=== PATIENT | male | born 1950 | race Caucasian/White ===

== ENCOUNTER → 2018-01-31 06:12 | Outpatient (CLI) | payer MEDICARE, OTHER, SELFPAY ==
[2018-01-24 15:31] VITALS: BMI 25.5
--- NOTE | 2018-01-31 14:32 | STRESSREP_ITS ---
Stress Test Report Date: 01/31/2018 Procedure: Exercise tolerance test/imaging study Indications: CAD; status post PCI Consent: Per the patient Procedure: The patient exercised on a Torres protocol for 8 minutes completing Stage II and 2 minutes of Stage III achieving a peak heart rate of 162 bpm (104 % predicted maximal heart rate) with a peak blood pressure 230/84 mmHg and a peak MET capacity of 9 METs. The baseline ECG demonstrated sinus bradycardia. The peak exercise ECG demonstrated no obvious ECG changes. There were occasional PVCs during exercise. The functional capacity was considered good. There was no complaint of chest discomfort during exercise or recovery. The examination was discontinued secondary to dyspnea. Impression: 1. Technically adequate (percent predicted maximal heart rate greater than 85%) exercise tolerance test 2. Peak exercise ECG no obvious ECG changes 3. Were occasional PVCs during exercise 4. Nuclear images pending Myocardial perfusion imaging study: Technique: The patient was injected with 10.9 mCi of technetium 99m Cardiolite and subsequently rest SPECT Cardiolite nuclear imaging was obtained in the horizontal long, vertical long, and short axis views. The patient exercised on a Torres protocol for 8 minutes completing Stage II and 2 minutes of Stage III achieving a peak heart rate of 162 bpm (104 % predicted maximal heart rate) with a peak blood pressure 230/84 mmHg and a peak MET capacity of 9 METs. The patient was injected with 31.4 mCi of technetium 99m Cardiolite and subsequently stress SPECT Cardiolite nuclear imaging was obtained in the horizontal long, vertical long, and short axis views. A gated Cardiolite study at peak stress was obtained. Interpretation: Rest and stress SPECT Cardiolite nuclear imaging status post realignment, normalization, and attenuation correction, demonstrates the appearance of relative uniform tracer uptake and myocardial perfusion appearing within normal limits. There is end systolic thickening and brightening. The gated Cardiolite study demonstrates myocardial thickening and inward wall motion. The reported LVEF is 77 %. Impression: 1. Rest and stress SPECT Cardiolite nuclear imaging demonstrate relative uniform tracer uptake and myocardial perfusion appearing within normal limits. 2. The gated Cardiolite study reports an LVEF of 77 %. This note was generated with [employer] software. It may contain incorrect words, spelling, and punctuation that were not noted in checking the note before signing.
== END ==
PROVIDERS: Family Provider Family Medicine; PCP Family Medicine; Referring Provider Physician Assistant Medical; Visit Provider Physician Assistant Medical
DX: I25.10 Atherosclerotic heart disease of native coronary artery without angina pectoris (principal); E78.5 Hyperlipidemia, unspecified
CPT/HCPCS: 78452; 93017; A9500; A4216

== ENCOUNTER → 2020-03-18 09:09 | Outpatient (CLI) | payer MEDICARE, OTHER, SELFPAY ==
[2020-03-17 10:07] VITALS: BMI 28.8
[2020-03-18 10:27] LABS: AST(SGOT) 26 U/L (15-37); Alanine Aminotransfer ALT/SGPT 33 U/L (16-61); Albumin, Serum 3.9 g/dL (3.2-5.0); Alkaline Phosphatase 165 U/L (45-117); Bilirubin, Direct 0.19 mg/dL (0.00-0.30); Cholesterol 137 mg/dL (200); Globulin 3.3 g/dL (2.2-4.2); High Density Lipoprotein 47 mg/dL; Protein, Total 7.2 g/dL (6.4-8.2); Triglycerides 157 mg/dL; Very Low Density Lipoprotein 31 mg/dL (5-40)
== END ==
PROVIDERS: PCP Family Medicine; Referring Provider Internal Medicine Cardiovascular Disease; Visit Provider Internal Medicine Cardiovascular Disease
DX: I25.10 Atherosclerotic heart disease of native coronary artery without angina pectoris (principal); E78.00 Pure hypercholesterolemia, unspecified; Z95.5 Presence of coronary angioplasty implant and graft
CPT/HCPCS: 36415; 80061; 80076

== ENCOUNTER 2020-06-25 20:03 | Emergency (ER) | payer MEDICARE, OTHER, SELFPAY ==
[2020-03-17 10:07] VITALS: BMI 28.8
[2020-06-25 20:03] VITALS: BP 163/90; PULSE 73; RESP 18; TEMP 36.1; O2SAT 95; BMI 25.0
--- NOTE | 2020-06-25 20:28 | EDS_ITS ---
HPI History of Present Illness Chief Complaint: Flank Pain [facility] Medical History (Updated 06/25/20 @ 23:[address] Fan Menchaca MD) Atherosclerosis of coronary artery of [place] heart without angina pectoris History of left heart catheterization (LHC) (~09/19/09) Hyperlipidemia Hypogammaglobulinemia Pericarditis Presence of stent in coronary artery (~08/2009) Pure hypercholesterolemia Home Medications aspirin 81 mg PO DAILY@0800 10/18/16 [History Last Taken 06/25/20 08:00] atorvastatin 40 mg PO QHS 10/18/16 [History Last Taken Unknown] multivitamin 1 tab PO DAILY 03/22/19 [History Last Taken Unknown] coenzyme [id number] [CoQ10 SG 100] cap PO 06/25/20 [History Last Taken Unknown] Allergy/AdvReac Type Severity Reaction Status Date / Time No Known Allergies Allergy Verified 06/25/20 20:05 Family History Mother Hypertension Brother Diabetes Hypertension Surgical History History of appendectomy History of right hemicolectomy (10/25/16) History of testicular lump History of tonsillectomy Presence of coronary angioplasty implant and graft (~08/2009) Social History (Updated 03/17/20 @ 10:[address] Asher Napoles MD) Smoking Status: Never smoker alcohol intake: never caffeine: Yes Type: tea Number of servings: 3 EXAM Physical Exam Const Vital Signs: 06/25/20 20:03 06/25/20 20:19 Temperature 97 F L Temperature Source Temporal Pulse Rate 73 Respiratory Rate 18 Respiratory Pattern Normal Blood Pressure 163/90 H Blood Pressure Mean 114 Pulse Ox 95 Oxygen Delivery Method Room Air MDM MDM MDM Narrative Medical decision making narrative: Patient presents with abrupt onset of right flank pain radiating to his groin. He denies testicular pain. Patient's history physical exam is consistent with obstructing ureteral stone. Urinalysis remarkable for 1+ bacteria. There is also blood and protein noted on the macro. Macro was negative for leukoesterase and nitrites. There was no pyuria. Since patient is immune suppressed urine culture was ordered and he received 2 g of Rocephin IV piggyback. Plan is to discharge once the Rocephin has infused. Lab Data Labs: Laboratory Results - last 24 hr 06/25/20 06/25/20 06/25/20 20:40 20:40 22:45 WBC 13.2 H RBC 4.88 Hgb 14.6 Hct 42.4 MCV 86.9 MCH 29.9 MCHC 34.4 RDW Std Deviation 40.1 RDW Coeff of Jovan 12.6 Plt Count 251 MPV 9.2 Immature Gran % (Auto) 0.300 Neut % (Auto) 77.3 H Lymph % (Auto) 14.5 L [place] % (Auto) 7.4 Eos % (Auto) 0.0 Baso % (Auto) 0.5 Absolute Neuts (auto) 10.2 H Absolute Lymphs (auto) 1.91 Nucleated RBC % 0 Sodium 139 Potassium 3.7 Chloride 107 Carbon Dioxide 25.0 Anion Gap 7 BUN 20 H Creatinine 1.06 Estim Creat Clear Calc 64.53 Est GFR (MDRD) Af Amer 89 Est GFR (MDRD) Non-Af 74 BUN/Creatinine Ratio 18.9 Glucose 133 H Calcium 8.9 Urine Color Yellow Urine Clarity Clear Urine pH 6.0 Ur Specific [place] 1.015 Urine Protein 15 H Urine Glucose (UA) Normal Urine Ketones Negative Urine Occult Blood 250 H Urine Nitrite Negative Urine Bilirubin Negative Urine Urobilinogen Normal Ur Leukocyte Esterase Negative Urine RBC 0-5 SEEN Urine WBC 0 SEEN Ur Squamous Epith Cells 0 SEEN Urine Bacteria 1+ Urine Mucus 1+ Radiography Diagnostic Testing: Radiology Impression Abdomen/Pelvis CT 06/25/20 20:56 IMPRESSION: Right renal and ureterovesical junction stones with hydronephrosis. Gallstone. No biliary dilatation. Right lower lung interstitial infiltrate. Electronically Signed: Natanael Gillette MD at 21:39 EDT , Service support , Discharge Plan Triage Chief Complaint: Flank Pain ED Provider: Fan Menchaca Dx/Rx/DC Orders Clinical Impression: Flank pain with history of urolithiasis, Bacteriuria, Suppression of immune system subtherapeutic Instructions: ED Kidney Stone, Passed Prescriptions: No Action multivitamin Tablet 1 tab PO DAILY RF: 0 atorvastatin 40 MG tablet 40 mg PO QHS RF: 0 aspirin 81 MG tablet 81 mg PO DAILY@0800 RF: 0 CoQ10 SG 100 100-100 mg-unit Capsule PO RF: 0 Primary Care Provider: Asher Castrejon Referrals: Asher Castrejon DO [Primary Care Provider] - 3-5 Days if not improving Disposition Disposition: Home, self care
[2020-06-25] MEDS: Morphine 4 MG/ML Syringe IV (20:46)
[2020-06-25] MEDS: Ketorolac 15 MG/ML Vial IV (20:46)
[2020-06-25] MEDS: Ondansetron 4 MG/2 ML Vial IV (20:47)
[2020-06-25] MEDS: 0.9% Normal Saline 1,000 ML 250 ML IV (20:48)
[2020-06-25 20:49] LABS: Absolute Lymphocyte Count 1.91 X10^3/uL (0.83-4.51); Absolute Neutrophil Count 10.2 X10^3/uL (2.0-7.7); Basophil# 0.07 X10^3/uL; Basophil% 0.5 % (0-1); Hematocrit 42.4 % (40-54); Hemoglobin 14.6 g/dL (13.0-16.5); Lymphocyte # 1.91 X10^3/ul (0.83-4.51); Lymphocyte % 14.5 % (19-41); Mean Corp Hgb Conc 34.4 g/dL (32-36); Mean Corpuscular Hgb 29.9 pg (27.0-32.0); Mean Corpuscular Volume 86.9 fL (80-94); Mean Platelet Vol. 9.2 fl (6.2-12.0); Monocyte# 0.98 X10^3/uL; Monocyte% 7.4 % (0-10); NRBC Flagged by Analyzer 0 % (0-5); Neutrophil % 77.3 % (47-70); Platelet Count 251 K/mm3 (150-450); RBC Distribution Width CV 12.6 % (11.6-14.6); RBC Distribution Width SD 40.1 fl (35.1-43.9); Red Blood Count 4.88 M/mm3 (4.6-6.2); White Blood Count 13.2 K/mm3 (4.4-11.0)
--- NOTE | 2020-06-25 20:56 | CT_ITS ---
STUDY: CT ABDOMEN AND PELVIS WITHOUT CONTRAST REASON FOR EXAM: Male, 70 years old. Kidney Stone, right flank pain. RADIATION DOSAGE (If Supplied By Facility): CTDIvol = ( 8.67 ) mGy, DLP = ( 478.82 ) mGycm TECHNIQUE: Transaxial images were obtained from the dome of the diaphragm to the symphysis pubis without oral contrast, and without intravenous contrast. Sagittal and coronal images were reconstructed. Individualized dose optimization techniques were used for this CT. COMPARISON: None. FINDINGS: There are interstitial increased opacities in the right lower lung. The visualized portions of the heart are within normal limits. Normal liver. There is a solitary gallstone. Normal spleen. Normal pancreas. Normal bilateral adrenal glands. There is a 0.2 cm stone at the lower pole of the right kidney. There is mild right hydronephrosis with perinephric stranding. The right ureter is dilated into the pelvis. There is 3.0 cm intermediate density mass or hyperdense cyst in the mid aspect of the left kidney. Normal visualized stomach. Normal small intestine. There is postoperative change of the right colon. There are a few diverticula in the sigmoid region There is non-visualization of the appendix. There is atherosclerotic calcification of the abdominal aorta, without a demonstrated aneurysm. Normal inferior vena cava. Normal retroperitoneum. There is a 0.4 cm stone in the right side of the urinary bladder adjacent to the ureterovesical junction. There is no free fluid in the abdomen or pelvis. There is a left-sided inguinal hernia containing adipose tissue. Mild degenerative change of the spine. CT/Abdomen/Pelvis without Cont IMPRESSION: Right renal and ureterovesical junction stones with hydronephrosis. Gallstone. No biliary dilatation. Right lower lung interstitial infiltrate. Electronically Signed: Natanael Gillette MD at 21:39 EDT , Service support ,
[2020-06-25 21:03] LABS: Anion Gap 7 (5-15); BUN 20 mg/dL (7-18); BUN/Creat Ratio 18.9 RATIO (10-20); Calcium,Total 8.9 mg/dL (8.5-10.1); Chloride 107 mmol/L (98-107); Creatinine, Serum 1.06 mg/dL (0.70-1.30); EST Glomerular Filtration Rate 74 mL/min (>60); Est Glom Filt Rate - Afr Amer 89 mL/min (>60); Estimated Creatinine Clearance 64.53 ml/min; Glucose 133 mg/dL (74-106); Potassium 3.7 mmol/L (3.5-5.1); Sodium Level 139 mmol/L (136-145)
[2020-06-25 22:52] LABS: Squamous Epithelial Cells - UA 0 SEEN /hpf (0-5); White Blood Cells 0 SEEN /hpf (0-5)
[2020-06-25 22:55] LABS: Color, Urine Yellow (Yellow); Glucose, Dipstick Normal (Normal); Ketone-Dipstick Negative (Negative); Leukocyte Esterase-Dipstick Negative /ul (Negative); Nitrite-Dipstick Negative (Negative); Occult Blood-Urine 250 /ul (Negative); Protein-Dipstick 15 mg/dl (Negative); Specific Gravity, Urine 1.015 (1.002-1.030); Urine Bilirubin Dipstick Negative (Negative); Urine Clarity Clear (Clear); Urine Urobilinogen Normal (Normal)
[2020-06-25 23:02] LABS: Bacteria 1+ /hpf (None Seen); Mucous, Urine 1+ /hpf (<or=2+); Red Blood Cells-Urine 0-5 SEEN /hpf (0-5)
[2020-06-25 23:19] VITALS: BP 125/81; PULSE 61; RESP 16; O2SAT 94
[2020-06-25 23:55] VITALS: BP 119/78; PULSE 74; RESP 16; O2SAT 98
== END 2020-06-26 00:05 | disposition home or self-care (01) ==
PROVIDERS: Emergency Provider Emergency Medicine; PCP Family Medicine
DX: R10.9 Unspecified abdominal pain (principal); I25.10 Atherosclerotic heart disease of native coronary artery without angina pectoris; Z95.5 Presence of coronary angioplasty implant and graft
CPT/HCPCS: 74176; 80048; 81001; 85025; 87086; 96365; 96375; 99283; J7030; A4216; J0696; J2405

== ENCOUNTER → 2020-09-22 06:21 | Outpatient (CLI) | payer MEDICARE, OTHER, SELFPAY ==
[2020-09-22 07:37] LABS: AST(SGOT) 28 U/L (15-37); Alanine Aminotransfer ALT/SGPT 38 U/L (16-61); Albumin, Serum 3.8 g/dL (3.2-5.0); Alkaline Phosphatase 161 U/L (45-117); Bilirubin, Direct 0.19 mg/dL (0.00-0.30); Cholesterol 119 mg/dL (200); Globulin 3.5 g/dL (2.2-4.2); High Density Lipoprotein 45 mg/dL; Protein, Total 7.3 g/dL (6.4-8.2); Triglycerides 97 mg/dL; Very Low Density Lipoprotein 19 mg/dL (5-40)
== END ==
PROVIDERS: PCP Family Medicine; Referring Provider Internal Medicine Cardiovascular Disease; Visit Provider Internal Medicine Cardiovascular Disease
DX: E78.00 Pure hypercholesterolemia, unspecified (principal)
CPT/HCPCS: 36415; 80061; 80076

== ENCOUNTER 2021-01-15 03:06 | Emergency (ER) | payer MEDICARE, OTHER, SELFPAY ==
[2021-01-15 03:07] VITALS: BP 155/78; PULSE 64; RESP 16; TEMP 36.2; O2SAT 94; BMI 26.0
[2021-01-15 04:08] LABS: Bacteria 0 SEEN /hpf (None Seen); Squamous Epithelial Cells - UA 0 SEEN /hpf (0-5)
--- NOTE | 2021-01-15 04:08 | ED.VIS.BACK ---
HPI History of Present Illness Chief Complaint: Back Narrative Narrative: 70-year-old male presenting with back pain. Is in the right lower lumbar paraspinal musculature in the right. Patient states is almost near his hip. Patient states that he was bending over about a week ago and this started hurting. He noticed that intermittently throughout the week. He does periodically have some nausea with this pain. When asked if he normally gets nausea with pain he states now. He does have a history of kidney stones in the past. He states that his pain has been higher on his back with this occurs. He denies any dysuria or hematuria. He denies fever or chills. He denies diaphoresis. Patient denies any direct trauma. No loss of bladder or bowel control. No saddle anesthesia. [facility] Medical History Atherosclerosis of coronary artery of [place] heart without angina pectoris History of left heart catheterization (LHC) (~09/19/09) Hyperlipidemia Hypogammaglobulinemia Pericarditis Presence of stent in coronary artery (~08/2009) Pure hypercholesterolemia Home Medications aspirin 81 mg PO DAILY@0800 10/18/16 [History Last Taken 06/25/20 08:00] atorvastatin 40 mg PO QHS 10/18/16 [History Last Taken Unknown] multivitamin 1 tab PO DAILY 03/22/19 [History Last Taken Unknown] cyclobenzaprine 10 mg PO TID PRN #20 tablet 01/15/21 [Rx Last Taken Unknown] naproxen [Naprosyn] 500 mg PO BID #20 tab 01/15/21 [Rx Last Taken Unknown] niacin 500 mg PO DAILY 01/15/21 [History Last Taken Unknown] Allergy/AdvReac Type Severity Reaction Status Date / Time No Known Allergies Allergy Verified 01/15/21 03:07 Family History Mother Hypertension Brother Diabetes Hypertension Surgical History History of appendectomy History of right hemicolectomy (10/25/16) History of testicular lump History of tonsillectomy Presence of coronary angioplasty implant and graft (~08/2009) Social History Smoking Status: Never smoker alcohol intake: never caffeine: Yes Type: tea Number of servings: 3 ROS ROS ED Constitutional Constitutional ED: Denies chills or fever(s) Eyes Eyes: Denies blurry vision or change in vision ENT ENT ED: Denies rhinorrhea or sore throat Cardiovascular Cardiovascular: Denies chest pain or palpitations Respiratory/Chest Respiratory/Chest: Denies dyspnea Gastrointestinal Gastrointestinal: Reports nausea; Denies abdominal pain, constipation, diarrhea or vomiting Genitourinary Genitourinary ED: Denies dysuria or hematuria Musculoskeletal Musculoskeletal: Reports back pain; Denies arthralgias or myalgias Integumentary Denies Abrasions or rash Neurologic Neurologic: Denies headache(s) or paresthesias EXAM Physical Exam Const Vital Signs: 01/15/21 03:07 Temperature 97.1 F L Temperature Source Temporal Pulse Rate 64 Respiratory Rate 16 Blood Pressure 155/78 H Blood Pressure Mean 103 Pulse Ox 94 Oxygen Delivery Method Room Air Positive well nourished General Appearance ED: NAD; Negative for pallor HEENT Reports moist mucous membranes Negative for trauma Eyes PERRL and EOMs intact bilaterally Resp normal respiratory effort and clear to auscultation bilaterally Cardio regular rate and regular rhythm Back/Spine Back/Spine Narrative: Right lumbar paraspinal musculature tenderness laterally. No midline spinal deformity or step-off. No CVA tenderness. Extremity normal to inspection General Extremety ED: Negative for edema or tenderness General Extremity: Negative for edema Neuro oriented x3 Sensorium / Orientation: alert Skin General Skin Exam: Negative for jaundice or pallor MDM MDM MDM Narrative Medical decision making narrative: Patient presenting with right lower back pain. Because of his history of kidney stone I did check a urinalysis. There is some small occult blood in this. BMP is unremarkable. CT of the abdomen pelvis is performed without contrast which does not identify any kidney stones. I feel comfortable sending the patient home with Naprosyn and Flexeril. He is to follow-up with his PCP to ensure resolution. Impression: 1. Lumbar strain Lab Data Labs: Laboratory Results - last 24 hr 01/15/21 01/15/21 04:00 04:42 Sodium 138 Potassium 4.1 Chloride 106 Carbon Dioxide 28.0 Anion Gap 4 L BUN 17 Creatinine 0.77 Estim Creat Clear Calc 68.40 Est GFR (MDRD) Af Amer 129 Est GFR (MDRD) Non-Af 107 BUN/Creatinine Ratio 22.1 H Glucose 109 H Calcium 8.6 Urine Color Yellow Urine Clarity Clear Urine pH 6.0 Ur Specific [place] 1.020 Urine Protein Negative Urine Glucose (UA) Normal Urine Ketones Negative Urine Occult Blood 25 H Urine Nitrite Negative Urine Bilirubin Negative Urine Urobilinogen Normal Ur Leukocyte Esterase 25 H Urine RBC 0-5 SEEN Urine WBC 10-25 SEEN Ur Squamous Epith Cells 0 SEEN Urine Bacteria 0 SEEN Urine Mucus 2+ Radiography Diagnostic Testing: Clinical Impression(s) from Imaging Studies Abdomen/Pelvis CT 01/15/21 04:33 IMPRESSION: Mild to moderate constipation. No status post appendectomy. Benign-appearing left renal cyst. No evidence of hydronephrosis. Fatty left inguinal hernia. Minimal right lower pleural thickening stable since prior study. Electronically Signed: Eri Diaz MD at 5:13 EST Tel , Service support , Discharge Plan Triage Chief Complaint: Back ED Provider: Jose Gavin Dx/Rx/DC Orders Instructions: ED Back Spasm, No Trauma Prescriptions: New naproxen [Naprosyn] 500 mg tablet 500 mg PO BID Qty: 20 RF: 0 cyclobenzaprine 10 mg tablet 10 mg PO TID PRN (Reason: Muscle Spasm) Qty: 20 RF: 0 No Action multivitamin Tablet 1 tab PO DAILY RF: 0 atorvastatin 40 MG tablet 40 mg PO QHS RF: 0 aspirin 81 MG tablet 81 mg PO DAILY@0800 RF: 0 niacin 500 mg Tablet 500 mg PO DAILY RF: 0 Primary Care Provider: Asher Castrejon Referrals: Asher Castrejon DO [Primary Care Provider] - Disposition Disposition: Home, Self Care
[2021-01-15 04:14] LABS: Color, Urine Yellow (Yellow); Glucose, Dipstick Normal (Normal); Ketone-Dipstick Negative (Negative); Leukocyte Esterase-Dipstick 25 /ul (Negative); Nitrite-Dipstick Negative (Negative); Occult Blood-Urine 25 /ul (Negative); Protein-Dipstick Negative (Negative); Urine Bilirubin Dipstick Negative (Negative); Urine Clarity Clear (Clear); Urine Urobilinogen Normal (Normal)
[2021-01-15 04:23] LABS: Red Blood Cells-Urine 0-5 SEEN /hpf (0-5); White Blood Cells 10-25 SEEN /hpf (0-5)
[2021-01-15 04:24] LABS: Mucous, Urine 2+ /hpf (<or=2+)
--- NOTE | 2021-01-15 04:33 | CT_ITS ---
STUDY: CT ABDOMEN AND PELVIS WITHOUT CONTRAST REASON FOR EXAM: Male, 70 years old. Kidney Stone RADIATION DOSAGE (If Supplied By Facility): CTDIvol = ( 6.99 ) mGy, DLP = ( 382.54 ) mGycm TECHNIQUE: Transaxial images were obtained from the dome of the diaphragm to the symphysis pubis without oral contrast, and without intravenous contrast. Sagittal and coronal images were reconstructed. Individualized dose optimization techniques were used for this CT. COMPARISON: June 25, 2020 CT abdomen and pelvis FINDINGS: There is a small focus of right pleural thickening and/or scarring. The visualized portions of the heart are within normal limits. Normal liver. Normal gallbladder and extrahepatic biliary system. Normal spleen. Normal pancreas. Normal bilateral adrenal glands. Normal right kidney. Findings cyst left kidney measuring 2.6 x 2.2 cm. Hounsfield units in the range of minimally complex. Normal visualized stomach. Normal small intestine. ''S postoperative change within the cecum. There is moderate stool in the colon from the cecum to the rectum. There are surgical clips in the region of the appendix consistent with a prior appendectomy. There is partial calcification of the distal aorta. Normal inferior vena cava. Normal retroperitoneum. Normal urinary bladder. Normal visualized prostate gland. There is a left side at inguinal hernia There are diffuse degenerative changes of the visualized lumbar spine. CT/Abdomen/Pelvis without Cont IMPRESSION: Mild to moderate constipation. No status post appendectomy. Benign-appearing left renal cyst. No evidence of hydronephrosis. Fatty left inguinal hernia. Minimal right lower pleural thickening stable since prior study. Electronically Signed: Eri Diaz MD at 5:13 EST Tel , Service support ,
[2021-01-15] MEDS: Ketorolac 15 MG/ML Vial IV (04:46)
[2021-01-15 05:03] LABS: Anion Gap 4 (5-15); BUN 17 mg/dL (7-18); BUN/Creat Ratio 22.1 RATIO (10-20); Calcium,Total 8.6 mg/dL (8.5-10.1); Chloride 106 mmol/L (98-107); Creatinine, Serum 0.77 mg/dL (0.70-1.30); EST Glomerular Filtration Rate 107 mL/min (>60); Est Glom Filt Rate - Afr Amer 129 mL/min (>60); Glucose 109 mg/dL (74-106); Potassium 4.1 mmol/L (3.5-5.1); Sodium Level 138 mmol/L (136-145)
[2021-01-15] MEDS: Orphenadrine 100 MG Tablet PO (05:33)
== END 2021-01-15 05:38 | disposition home or self-care (01) ==
PROVIDERS: Emergency Provider Student in an Organized Health Care Education/Training Program; PCP Family Medicine
DX: S39.012A Strain of muscle, fascia and tendon of lower back, initial encounter (principal); I25.10 Atherosclerotic heart disease of native coronary artery without angina pectoris; E78.00 Pure hypercholesterolemia, unspecified; Z95.5 Presence of coronary angioplasty implant and graft; Z87.442 Personal history of urinary calculi; Z79.82 Long term (current) use of aspirin; X58.XXXA Exposure to other specified factors, initial encounter; Z79.899 Other long term (current) drug therapy
CPT/HCPCS: 74176; 80048; 81001; 96374; 99283; A4216

== ENCOUNTER 2021-03-30 09:16 | Outpatient (CLI) | payer MEDICARE, OTHER, SELFPAY ==
[2021-03-30 10:58] LABS: AST(SGOT) 27 U/L (15-37); Alanine Aminotransfer ALT/SGPT 35 U/L (16-61); Albumin, Serum 3.9 g/dL (3.2-5.0); Alkaline Phosphatase 155 U/L (45-117); Cholesterol 129 mg/dL (200); Globulin 3.2 g/dL (2.2-4.2); High Density Lipoprotein 55 mg/dL; Protein, Total 7.1 g/dL (6.4-8.2); Triglycerides 85 mg/dL; Very Low Density Lipoprotein 17 mg/dL (5-40)
== END 2021-03-30 23:59 | disposition short-term general hospital (02) ==
LOC: LAB 09:19
PROVIDERS: PCP Family Medicine; Referring Provider Internal Medicine Cardiovascular Disease; Visit Provider Internal Medicine Cardiovascular Disease
DX: E78.00 Pure hypercholesterolemia, unspecified (principal)
CPT/HCPCS: 36415; 80061; 80076

== ENCOUNTER → 2021-10-02 | Outpatient (CLI) | payer MEDICARE, OTHER, SELFPAY ==
[2021-10-02 10:12] LABS: AST(SGOT) 32 U/L (15-37); Alanine Aminotransfer ALT/SGPT 36 U/L (16-61); Albumin, Serum 3.7 g/dL (3.2-5.0); Alkaline Phosphatase 139 U/L (45-117); Bilirubin, Direct 0.22 mg/dL (0.00-0.30); Cholesterol 121 mg/dL (200); Globulin 3.4 g/dL (2.2-4.2); High Density Lipoprotein 43 mg/dL; Protein, Total 7.1 g/dL (6.4-8.2); Triglycerides 109 mg/dL; Very Low Density Lipoprotein 22 mg/dL (5-40)
== END | disposition home or self-care (01) ==
LOC: LAB 08:12
PROVIDERS: Internal Medicine Cardiovascular Disease; PCP Family Medicine; Visit Provider Nurse Practitioner Family
DX: E78.00 Pure hypercholesterolemia, unspecified (principal)
CPT/HCPCS: 36415; 80061; 80076

== ENCOUNTER → 2022-04-22 | Outpatient (CLI) | payer MEDICARE, OTHER, SELFPAY ==
[2022-04-22 10:14] LABS: AST(SGOT) 30 U/L (15-37); Alanine Aminotransfer ALT/SGPT 33 U/L (16-61); Albumin, Serum 3.9 g/dL (3.2-5.0); Alkaline Phosphatase 142 U/L (45-117); Bilirubin, Direct 0.26 mg/dL (0.00-0.30); Cholesterol 128 mg/dL (200); High Density Lipoprotein 49 mg/dL; Protein, Total 6.9 g/dL (6.4-8.2); Triglycerides 124 mg/dL; Very Low Density Lipoprotein 25 mg/dL (5-40)
== END | disposition home or self-care (01) ==
PROVIDERS: PCP Family Medicine; Referring Provider Internal Medicine Cardiovascular Disease; Visit Provider Internal Medicine Cardiovascular Disease
DX: E78.00 Pure hypercholesterolemia, unspecified (principal)
CPT/HCPCS: 36415; 80061; 80076

== ENCOUNTER → 2022-09-15 | Outpatient (CLI) | payer MEDICARE, OTHER, SELFPAY ==
--- NOTE | 2022-09-15 09:33 | STRESSREP ---
Stress Test Report Date: 09/15/2022 Procedure: Exercise tolerance test/imaging study Indications: Coronary artery disease Consent: Per the patient Procedure: The patient exercised on a Torres protocol for 7 minutes and 1 second achieving a peak heart rate of 203 bpm (135% predicted maximal heart rate) with a peak blood pressure 180/78 mmHg and a peak MET capacity of 10.1 METs. The baseline ECG demonstrated normal sinus rhythm. The peak exercise ECG demonstrated no ischemic changes. Short burst of SVT at 210 bpm noted at 47 seconds into recovery. Self terminating. The functional capacity was considered average. There was no complaint of chest discomfort during exercise or recovery. The examination was discontinued secondary to target heart rate being achieved. The patient was injected with 11 point mCi of technetium 99m Cardiolite and subsequently rest SPECT Cardiolite nuclear imaging was obtained in the horizontal long, vertical long, and short axis views. Post-exercise, the patient was injected with 34 point mCi of technetium 99m Cardiolite and subsequently stress SPECT Cardiolite nuclear imaging was obtained in the horizontal long, vertical long, and short axis views. A gated Cardiolite study at peak stress was obtained. Rest and stress SPECT Cardiolite nuclear imaging status post realignment, normalization, and attenuation correction, demonstrates the appearance of relative uniform tracer uptake and myocardial perfusion appearing within normal limits. There is end systolic thickening and brightening. The gated Cardiolite study demonstrates myocardial thickening and inward wall motion. The reported LVEF is 70%. Impression: 1. Technically adequate (percent predicted maximal heart rate greater than 85%) exercise tolerance test 2. Peak exercise ECG with no ischemic changes 3. Brief episode of SVT noted in recovery. Self terminating. 4. Rest and stress SPECT Cardiolite nuclear imaging demonstrate relative uniform tracer uptake and myocardial perfusion appearing within normal limits. 5. The gated Cardiolite study reports an LVEF of 70%. This note was generated with [employer] software. It may contain incorrect words, spelling, and punctuation that were not noted in checking the note before signing.
== END | disposition home or self-care (01) ==
LOC: CVS 06:36
PROVIDERS: PCP Family Medicine; Referring Provider Nurse Practitioner Gerontology; Visit Provider Nurse Practitioner Gerontology
DX: I25.10 Atherosclerotic heart disease of native coronary artery without angina pectoris (principal); Z95.5 Presence of coronary angioplasty implant and graft
CPT/HCPCS: 78452; 93017; A9500; A4216

== ENCOUNTER → 2023-09-30 | Outpatient (CLI) | payer MEDICARE, OTHER, SELFPAY ==
--- NOTE | 2023-09-30 12:59 | ECHOD_ITS ---
Reason For Study: Murmur Procedure This was a 2D Doppler, Color Flow transthoracic echocardiogram. Myocardial strain analysis was performed in this exam to aid in the assessment of cardiac function. Exam performed in department. Left Ventricle Normal left ventricle. Left ventricular systolic function is normal. The left ventricular ejection fraction is 70 %. Stage 1 diastolic dysfunction. No regional wall motion abnormalities noted. Right Ventricle Normal RV size. Normal systolic function. Atria Normal left atrium. Normal right atrium. Mitral Valve Normal mitral valve. Tricuspid Valve Normal tricuspid valve. Aortic Valve Normal aortic valve. Pulmonic Valve Normal pulmonic valve. Great Vessels Normal aortic root. The pulmonary is not well visualized. Normal inferior vena cava. Pericardium/Pleural No pericardial effusion. MMode/2D Measurements & Calculations LVIDd: 4.6 cm IVSd: 1.1 cm Ao root diam: 3.1 cm LVIDs: 3.4 cm LVPWd: 0.88 cm LA dimension: 3.5 cm RVDd: 3.5 cm FS: 25.0 % LAV(MOD-bp): 34.1 ml LVAd ap4: 28.0 cm2 SV(MOD-sp4): 52.8 ml LAV(MOD-bp) Indexed: 18.3 ml/m2 LVLd ap4: 8.4 cm LAV(MOD-sp2): 37.4 ml EDV(MOD-sp4): 77.1 ml LAV(MOD-sp4): 26.5 ml EDV(sp4-el): 78.6 ml LVAs ap4: 14.1 cm2 LVLs ap4: 7.1 cm ESV(MOD-sp4): 24.2 ml ESV(sp4-el): 23.7 ml EF(MOD-sp4): 68.6 % EF(sp4-el): 69.8 % SV(sp4-el): 54.9 ml LA A4 area: 11.9 cm2 RA A4 area: 11.5 cm2 TAPSE: 2.2 cm Time Measurements MV dec time: 0.31 sec Doppler Measurements & Calculations MV E max cooper: 75.6 cm/sec Lat Peak E' Cooper: 12.1 cm/sec Med Peak E' Cooper: 8.1 cm/sec MV A max cooper: 91.6 cm/sec E/E' lat: 6.3 E/E' med: 9.3 MV E/A: 0.83 MV V2 max: 94.1 cm/sec MV P1/2t max cooper: 88.0 cm/sec Ao V2 max: 142.7 cm/sec MV max P.5 mmHg MV P1/2t: 91.3 msec Ao max P.3 mmHg MV V2 mean: 45.4 cm/sec MV dec slope: 282.4 cm/sec2 Ao V2 mean: 94.8 cm/sec MV mean P.0 mmHg Ao mean P.3 mmHg MV V2 VTI: 31.5 cm MVA(P1/2t): 2.4 cm2 Ao V2 VTI: 32.3 cm AV (velocity ratio): 0.72 LV V1 max: 110.9 cm/sec PA V2 max: 121.5 cm/sec LV V1 max P.9 mmHg PA max PG (full): 4.3 mmHg LV V1 mean P.6 mmHg LV V1 mean: 74.2 cm/sec LV V1 VTI: 23.4 cm ECHO/Echo Complete Interpretation Summary Normal left ventricle. Left ventricular systolic function is normal. The left ventricular ejection fraction is 70 %. Stage 1 diastolic dysfunction. The global longitudinal strain is normal. The global longitudinal strain = -22 % (normal). Ordering Physician: Eliseo Gonzales Referring Physician: Eliseo Gonzales Performed By: Kamran Senior RCS
== END | disposition home or self-care (01) ==
LOC: CVS 12:57
PROVIDERS: PCP Family Medicine; Referring Provider Internal Medicine Cardiovascular Disease; Visit Provider Internal Medicine Cardiovascular Disease
DX: R01.1 Cardiac murmur, unspecified (principal)
CPT/HCPCS: 93306

== ENCOUNTER → 2024-10-25 | Outpatient (CLI) | payer MEDICARE, OTHER, SELFPAY ==
[2024-10-25 09:15] LABS: Cholesterol 109 mg/dL (<=200); Low Density Lipoprotein Calc. 47 mg/dL; Triglycerides 106 mg/dL; Very Low Density Lipoprotein 21 mg/dL (5-40); cholesterol:hdl ratio screen 2.66
== END | disposition home or self-care (01) ==
LOC: LAB 08:21
PROVIDERS: PCP Family Medicine; Referring Provider Student in an Organized Health Care Education/Training Program; Visit Provider Student in an Organized Health Care Education/Training Program
DX: E78.00 Pure hypercholesterolemia, unspecified (principal)
CPT/HCPCS: 36415; 80061